=== PATIENT | female | born 1980 | race Caucasian/White ===

== ENCOUNTER 2017-09-11 16:10 | Emergency (ER) | payer OTHER, SELFPAY ==
[2017-09-11 16:13] VITALS: BP 158/105; PULSE 99; RESP 20; TEMP 36.9; O2SAT 98; BMI 29.0
--- NOTE | 2017-09-11 16:33 | CT_ITS ---
STUDY: CT ABDOMEN AND PELVIS WITH CONTRAST REASON FOR EXAM: Female, 37 years old. Right lower quadrant pain x3 days RADIATION DOSAGE (If Supplied By Facility): CTDIvol = ( 14.28 ) mGy, DLP = ( 1051.87 ) mGycm TECHNIQUE: Transaxial images were obtained from the dome of the diaphragm to the symphysis pubis with oral contrast. 100 ml of Isovue 300 contrast was administered. Sagittal and coronal images were reconstructed. Individualized dose optimization techniques were used for this CT. COMPARISON: None. FINDINGS: The visualized lung bases are unremarkable. The visualized portions of the heart are within normal limits. There is a subcentimeter hypodensity of the posterior right hepatic lobe. Normal gallbladder and extrahepatic biliary system. Normal spleen. Normal pancreas. Normal bilateral adrenal glands. Normal right kidney. Normal left kidney. Normal visualized stomach. Normal small intestine. Normal colon. The appendix is normal in caliber. There is no evidence of periappendiceal inflammatory process or abnormal fluid collection. Normal abdominal aorta. Normal inferior vena cava. Normal retroperitoneum. Normal urinary bladder. The uterus and adnexal structures are unremarkable. There is a small umbilical hernia containing fat. Normal osseous structures. CT/Abdomen/Pelvis WITH Contrast IMPRESSION: Subcentimeter hypodensity of the posterior right hepatic lobe. This may represent process such as cyst or hemangioma. Ultrasound correlation is recommended. The appendix appears normal. There is a small fat-containing umbilical hernia. There is no evidence of free intra-abdominal or intrapelvic air, fluid, or inflammatory process. Electronically Signed: All Hook MD at 19:59 EDT , Service support ,
[2017-09-11 17:20] LABS: Bacteria 0 SEEN /hpf (None Seen); Mucous, Urine 0 SEEN /hpf (<or=2+); Red Blood Cells-Urine 0 SEEN /hpf (0-5); White Blood Cells 0 SEEN /hpf (0-5)
[2017-09-11 17:27] LABS: Color, Urine Yellow (Yellow); Glucose, Dipstick Normal (Normal); Ketone-Dipstick Negative (Negative); Leukocyte Esterase-Dipstick Negative /ul (Negative); Nitrite-Dipstick Negative (Negative); Occult Blood-Urine Negative /ul (Negative); Protein-Dipstick Negative (Negative); Urine Bilirubin Dipstick Negative (Negative); Urine Clarity Sl. Cloudy (Clear); Urine Urobilinogen Normal (Normal)
[2017-09-11 17:33] LABS: Internal QC Validated? YES +Cl - CLEAR BKGD; Pregnancy, Urine Negative Negative
[2017-09-11 17:40] LABS: Anion Gap 6 (5-15); BUN 18 mg/dL (7-18); BUN/Creat Ratio 24.1 RATIO (10-20); Calcium,Total 8.5 mg/dL (8.5-10.1); Chloride 105 mmol/L (98-107); Creatinine, Serum 0.75 mg/dL (0.55-1.02); EST Glomerular Filtration Rate 94 mL/min (>60); Est Glom Filt Rate - Afr Amer 113 mL/min (>60); Glucose 94 mg/dL (74-106); Potassium 3.9 mmol/L (3.5-5.1); Sodium Level 138 mmol/L (136-145)
[2017-09-11 17:46] LABS: Absolute Lymphocyte Count 2.89 X10^3/ul (0.83-4.51); Absolute Neutrophil Count 3.7 X10^3/uL (2.0-7.7); Basophil# 0.04 X10^3/uL; Basophil% 0.5 % (0-1); Hematocrit 39.4 % (37-47); Hemoglobin 13.7 g/dl (12.0-15.0); Lymphocyte # 2.89 X10^3/ul (4.0); Lymphocyte % 38.9 % (19-41); Mean Corp Hgb Conc 34.8 g/gl (32-36); Mean Corpuscular Hgb 30.9 pg (27.0-32.0); Mean Corpuscular Volume 88.7 fL (81-99); Mean Platelet Vol. 9.1 fl (6.2-12.0); Monocyte# 0.48 X10^3/uL; Monocyte% 6.5 % (0-10); Platelet Count 306 K/mm3 (150-450); RBC Distribution Width CV 12.5 % (11.6-14.6); RBC Distribution Width SD 40.3 fl (35.1-43.9); Red Blood Count 4.44 M/mm3 (4.2-5.4); White Blood Count 7.4 K/mm3 (4.4-11.0)
[2017-09-11 17:53] LABS: POSITIVE COUNT NO; POSITIVE DIFFERENTIAL NO; POSITIVE MORPHOLOGY NO
[2017-09-11 18:08] LABS: Squamous Epithelial Cells - UA 0-5 SEEN /hpf (5-10)
[2017-09-11 19:26] VITALS: BP 135/77; PULSE 84; RESP 16; O2SAT 100
--- NOTE | 2017-09-11 20:16 | ED.VISSUMM ---
- ER Visit Summary Date of Service: 09/11/17 Chief Complaint: Abdominal pain History of Present Illness: The patient is a 37 F who presents with abdominal pain. It is been present for 4 days. It comes and goes. It is dull. It is located in the right lower quadrant. At its worst it is been 6 out of 10 currently it is 2 out of 10. She notes loose stools over the past 4 days but states this is not nirmal diarrhea. No nausea or vomiting. No fevers. No urinary symptoms. She states she feels gassy her pain sometimes radiates into her right back which is mild but is uncertain if this is muscular and she has been moving and seeing a chiropractor. Physical Examination: Afebrile unremarkable Heart regular rate and rhythm Lungs are clear Abdomen soft Abdomen tender in the right lower quadrant but no guarding no rebound no Rovsing or obturator sign she is nondistended Test Results: CBC BMP urinalysis all normal and is negative. CT of the abdomen and pelvis shows a subcentimeter hypodensity in the posterior right hepatic lobe normal appendix fat-containing umbilical hernia and no acute process. Emergency Department Course and Treatment: Patient's workup is unremarkable here. She was advised of the hypodensity in her liver and the need for outpatient follow-up ultrasound. She will follow-up with her primary care physician. She has no acute pathology to explain her pain on imaging. I suspect this may be related to a musculoskeletal etiology. She understands to return for new or worsening symptoms. All questions answered bedside. Patient discharged. Treatment Plan: [] Disposition: Discharge Impression: Right lower quadrant abdominal pain This note was generated with [employer] dictation software. It may contain incorrect words, spelling, and punctuation that were not noted in review of the chart prior to signing ED Disposition - Plan for ED Patient: Chief Complaint: Abd Pain Referrals: Joann Whitaker MD [Primary Care Provider] -
--- NOTE | 2017-09-11 20:19 | DCINST.ED_ITS ---
ED Disposition - Plan for ED Patient: Chief Complaint: Abd Pain Instructions: ED Abdominal Pain Unkn Cause Referrals: Joann Whitaker MD [Primary Care Provider] -
--- NOTE | 2017-09-11 20:19 | ED.DEP ---
ED Disposition - Plan for ED Patient: Chief Complaint: Abd Pain Instructions: ED Abdominal Pain Unkn Cause Referrals: oJann Whitaker MD [Primary Care Provider] -
[2017-09-11 20:27] VITALS: RESP 18; O2SAT 98
== END 2017-09-11 20:32 | disposition home or self-care (01) ==
LOC: ED 16:47
PROVIDERS: Emergency Provider Emergency Medicine; Family Provider Internal Medicine; PCP Internal Medicine
DX: R10.31 Right lower quadrant pain (principal); M54.9 Dorsalgia, unspecified; K42.9 Umbilical hernia without obstruction or gangrene
CPT/HCPCS: 74177; 80048; 81001; 81025; 85025; 99283; Q9967; A4216

== ENCOUNTER 2019-12-28 10:16 | Day surgery (SDC) | payer OTHER, SELFPAY ==
[2019-12-28] VITALS (7 sets, daily range): BP systolic 92–129; BP diastolic 60–84; PULSE 68–83; RESP 14–16; TEMP 36.2–36.9; O2SAT 95–100; BMI 29.4
--- NOTE | 2019-12-28 | POC_PTH ---
PATIENT: MANJU JOSÉ LOC: [facility] – [place] U#:[id number] AGE/SX: 39/F ROOM: RE12/28/[address]: Dr. Melonie Cat, MDDOB: 1980 BED: DIS: 12/28/2019 SPEC #: [id number] RECD: 12/28/19 13:15 STATUS: MAU RENing #: [id number] MERCY: 12/28/19 00:[address]: Melonie Cat DEPT: SURGICAL PATHOLOGY RECD BY: Joss Akbar ENTERED: 12/31/19 08:18 SP TYPE: PROD CONC OTHR DR: Dr. Joann Whitaker MD Tissues: Product of conception, NOS Procedures: Surgery Specimen Level IV HEADER OPERATION: Dilation and curettage, suction PRE-OP DIAGNOSIS: Missed TISSUE SUBMITTED: Products of conception MICROSCOPIC DIAGNOSIS Endometrium, curettage: Chorionic villi, decidualized stroma and trophoblastic cells consistent with products of conception. AM:shelbi 01/01/20 MICROSCOPIC DESCRIPTION Slides are reviewed. GROSS DESCRIPTION Received in fixative is one container labeled with the patient's name and designated products of conception. The specimen consists of multiple irregular fragments of light caal soft tissue that in aggregate measure 8 x 8 x 1 cm. parts are not grossly recognized. Splicer Helper portions are submitted in three cassettes. / AM:shelbi 12/31/19 TC:5 CPT: 01477
[2019-12-28] MEDS: Doxycycline 100 MG CAPSULE 200 MG PO (07:00)
--- NOTE | 2019-12-28 08:52 | PCM.HP.BLA ---
History and Physical Date of Admission: 12/28/19 Routine Office Visit 12/26/2019 OB/Gynecology Melonie Bender [employer]AMING INSPECTOR Missed Dx Care ; Referred by Melonie Bender Reason for Visit Progress Notes Expand AllCollapse All Feli Celis is a 39 year old female who presents bedside ultrasound to confirm cardiac activity. Patient denies any vaginal bleeding, pain, fevers. Upon ultrasound today confirmed diagnosis of missed AB. [place]-rump length is measuring 7 weeks 4 days gestation. Pt offers no concerns today. ? PAST MEDICAL HISTORY PAST MEDICAL HISTORY Diagnosis Date ? Gestational diabetes mellitus, class A1 12/28/2016 ? Gestational hypertension 02/10/2017 ? History of pre-eclampsia in prior , currently ? ? Infertility, female ? ? PCOS (polycystic ovarian syndrome) ? ? depression ? ? PAST SURGICAL HISTORY PAST SURGICAL HISTORY Procedure Laterality Date ? ARTIFICIAL INSEMINATION INTRA-CERVICAL ? ? ? x 2 ? FAMILY HISTORY FAMILY HISTORY Problem Relation Age of Onset ? Cancer Mother ? ? brain ? Hyperlipidemia Mother ? ? Hypertension Father ? ? No Known Problems Brother ? ? No Known Problems Brother ? ? Heart Maternal Grandfather ? ? Heart Paternal Grandfather ? ? No Known Problems Daughter ? ? SOCIAL HISTORY Social History ? Tobacco Use ? Smoking status: Never Smoker ? Smokeless tobacco: Never Used Substance Use Topics ? Alcohol use: Not Currently ? ? Comment: occasionally, not while ? Drug use: No ? CURRENT MEDICATIONS Current Outpatient Medications Medication Sig ? PNV95/FERROUS FUM/FOLIC ACID ( ORAL) Take by mouth. ? No current facility-administered medications for this visit. ? Allergies As of Date: 12/26/2019 (No Known Allergies) Fully Assessed 12/26/2019 ? ? REVIEW OF SYSTEMS Abdomen: no pain Bladder: no dysuria.. Expanded ROS: GENERAL: No weight loss, malaise or fevers Allergies and current medication updated:yes ? EXAM: BP 122/60 Wt 150 lb (68.0kg) LMP 09/21/2019 GENERAL: pleasant, female in no apparent distress HEENT: Normocephalic and atraumatic NECK: full range of motion DERMATOLOGY: Normal NEURO: alert and oriented x3,exam grossly non-focal EXTREMITIES: normal ? TV US: CRL c/w 7w4d, no FHR appreciated. ? ASSESSMENT AND PLAN: Encounter Diagnosis ? ? ICD-10-CM ? 1. Missed O02.1 ? ? 2. Reviewed options for management including expectant, medical with Cytotec, surgical with a D&C. Risks and benefits of each were explained to the patient. I discussed each option with the patient. Patient is leaning towards an in office manual evacuation of the uterus but she would like to discuss with her first. Patient will call the office to notify me of her decision. She is Rh+, hemoglobin and hematocrit stable. 3. Offered anora testing patient declines 4.Pt would like to proceed with Suction D&C at [facility]. Rh + and Hg/hct stable from [facility]. Melonie Cat MD ?
[2019-12-28] MEDS: Lactated Ringers 1,000 ML 100 ML IV (11:11)
--- NOTE | 2019-12-28 12:35 | PCM.OPRPT ---
Report of Operation Date of Procedure: 12/28/19 - start time 1229: end time 1235 Pre-Operative Diagnosis: missed ab 7w4d Post-Operative Diagnosis: same Surgery/Procedure Performed:: suction D&C Description of Surgical Findings:: 8 week sized uterus, retroverted. 7mm suction curette used for procedure. Type of Anesthesia:: MAC Special Medications: none Specimen's removed: Products of conception Drains: none Estimated Blood Loss (mL): Minimal Fluids Replaced: 600cc Description of Procedure: After informed consent was obtained patient was taken to OR and placed in supine position. Anesthesia was given. patient was placed in yellow fin stirrups and prepped and draped in normal sterile fashion. bladder was drained with straight catheter with approximately 100cc of clear yellow urine expelled. Weighted speculum placed in posterior fornix of vaginal, single tooth tenaculum was used to gently grasped anterior lip of cervix. . Cervix was then gently dilated in an incremental fashion. Was adequate dilation was achieved the 7mm suction catheter was placed. suction curettage performed until no tissue was expelled and cavity was deemed empty. gentle sharp curettage performed- no tissue noted. The tissue was then sent to pathology for examination. No complications. At this time procedure was deemed complete and successful. Tenaculum removed, speculum removed. Good hemostasis appreciated. Vaginal sweep was negative. Instrument and lap count correct x 2. I anticipate normal postoperative course. Grafts/Implants Used: none - Complications none - Admit VTE Documentation VTE Present on Admission: Yes VTE Mechan Device Prophylaxis: SCD's VTE Pharm Prophylaxis ordered?: No
--- NOTE | 2019-12-28 12:40 | DCINST_ITS ---
Discharge Diet: No Restrictions Discharge Activity: Return to Normal Activity, May Shower, May Take a Tub Bath - in 2 weeks. May resume sexual activity in: 1 week Call your doctor if you observe: Fever of 101 or Higher, Using more than one pad per hour, Uncontrolled pain Allergies/Adverse Reactions: Allergies No Known Allergies Allergy (Verified 09/11/17 16:17) Medications to take at Discharge Vits [Prenatabs FA ] 1 tablet PO DAILY 02/14/17 Primary Care Physician: Joann Whitaker MD [Primary Care Provider] - Test Results: Test results from this visit will be discussed in further detail at your follow- up appointment, if applicable. Please Follow Up With: Melonie Cat MD When: 2 weeks- call [phone]
== END 2019-12-28 14:13 | disposition home or self-care (01) ==
LOC: SDC 10:18 → AC 10:20
PROVIDERS: PCP Internal Medicine; Referring Provider Obstetrics & Gynecology; Visit Provider Obstetrics & Gynecology
PROC: (CPT 59820; principal; 2019-12-28 12:15)
DX: O02.1 Missed abortion (principal); Z3A.01 Less than 8 weeks gestation of pregnancy; Z82.49 Family history of ischemic heart disease and other diseases of the circulatory system; Z86.32 Personal history of gestational diabetes; O09.01 Supervision of pregnancy with history of infertility, first trimester; E28.2 Polycystic ovarian syndrome
CPT/HCPCS: 01965; 59820; 88305; J7120; J2405